=== PATIENT | male | born 1980 | race Caucasian/White ===

== ENCOUNTER 2022-08-06 21:41 | Emergency (ER) | payer SELFPAY ==
[~2022-08-06] VITALS: Ht 167.6 cm; Wt 141.5 kg
[2022-08-06] MEDS ORDERED: SODIUM CHLORIDE 0.9% 1000ML 1,000 ML IV ONE (22:45)
[2022-08-06] MEDS ORDERED: SODIUM CHLORIDE 0.9% 1000ML 1,000 ML ONE (22:47)
[2022-08-06] MEDS ORDERED: AZITHROMYCIN 250 MG TAB PO ONE (23:15)
[2022-08-06] MEDS ORDERED: AZITHROMYCIN 250 MG TAB ONE (23:20)
[2022-08-06] MEDS ORDERED: CEFTRIAXONE 1 GM VIAL ONE (23:21)
[2022-08-06] MEDS ORDERED: BACTRIM DS TAB1 EACH PO (23:43)
[2022-08-07 00:58] VITALS: BP 159/90
== END 2022-08-07 00:58 | disposition home or self-care (01) ==
LOC: FSED 21:45
DX: R11.0 Nausea (principal); N39.0 Urinary tract infection, site not specified
CPT/HCPCS: 71046; 80048; 80076; 81003; 85025; 87086; 87186; 87400; 87491; 87591; 99283; J0696; J7030